=== PATIENT | male | born 1955 | race Caucasian/White ===

== ENCOUNTER → 2016-11-01 | Outpatient (REF) | payer MEDICARE, MEDICAID | LOC: M LABNEURO 17:15 | PROVIDERS: ATTEND Psychiatry & Neurology Neurology | DX: M25.512 Pain in left shoulder (principal) ==

== ENCOUNTER → 2016-11-13 | Outpatient (CLI) | payer MEDICARE, MEDICAID ==
--- NOTE | 2016-11-13 16:01 | REP ---
MRI LEFT SHOULDER WITHOUT CONTRAST: 11/13/2016. Clinical history: Shoulder pain. No known injury. Limited range of motion. The patient is medicated for tremors. Technique: Axial T2 Medic and fat suppressed T2 sequences with coronal T1 and fat suppressed T2 and a sagittal fat suppressed T2 sequence. All of the T2 fat suppressed sequences are limited to a degree by motion from his tremor. However, findings are reasonably made. Findings: No prior study. Coronal images show the AC joint with inferior spurring, but this does not impinge on the musculotendinous junction, however, a peripheral acromial spur does cause impingement of the musculotendinous junction of rotator cuff and there is a small amount of subacromial and subdeltoid bursa. There has been thinning of the supraspinatus tendon and a partial tear of the tendon of full-thickness in its central portion. However, no retraction of the tendon nor atrophy of the muscle belly of the supraspinatus is noted. There are some subchondral cysts in the greater tuberosity of the humeral head near the insertional footprint of that tendon. The subscapularis tendon shows some thickening anteriorly near its insertion suggesting some tendinopathy tendinosis. No tear or retraction of the tendon. No atrophy of the muscle. The infraspinatus and teres minor tendons and muscles are grossly intact. There is a small glenohumeral joint effusion and fluid in the subcoracoid bursa and along the subscapularis noted. No definite loose body. There may be some posterior labral degenerative changes or fraying, but no definite labral tear can be visualized on these images. No sign of a loose body. The bony coracoid was intact. The coracoclavicular and coracohumeral ligaments are intact. The spinal glenoid notch shows no fluid collection or mass. There are degenerative changes at the glenohumeral joint inferiorly. Biceps tendon is seated in the groove. Biceps labral complex grossly intact. Impression: 1. Osteoarthritic changes glenohumeral joint and AC joint but without impingement by the AC joint, however there is impingement of the supraspinatus tendon from a peripheral acromial spur and subchondral cystic changes noted. Partial tearing of that supraspinatus tendon over the greater tuberosity noted without full-thickness complete tear with retraction. Minimal atrophy of the muscle. 2. Subscapularis tendinopathy tendinosis without a full-thickness tear or with atrophy of the muscle. 3. Infraspinatus and teres minor tendons and muscles grossly intact and the biceps tendon grossly intact. Signed by Taz Starks MD 11/13/2016 05:10 P
== END ==
LOC: M RAD 09:46
PROVIDERS: ATTEND Psychiatry & Neurology Neurology
DX: S43.82XA Sprain of other specified parts of left shoulder girdle, initial encounter (principal); M19.012 Primary osteoarthritis, left shoulder; M75.82 Other shoulder lesions, left shoulder; M25.542 Pain in joints of left hand; X58.XXXA Exposure to other specified factors, initial encounter; Y92.89 Other specified places as the place of occurrence of the external cause; Y93.89 Activity, other specified; Y99.8 Other external cause status

== ENCOUNTER → 2017-12-02 | Outpatient (REF) | payer MEDICARE, MEDICAID ==
[2017-12-02 13:45] LABS: BASO # 0.1 10^3/uL (0.0-0.2); BASO % 0.9 % (0.0-1.0); EOS # 0.1 10^3/uL (0.0-0.50); EOS % 2.3 % (0.0-3.0); HEMATOCRIT 46.6 % (42.0-52.0); HEMOGLOBIN 15.3 g/dl (13.5-17.5); IMMATURE GRANULOCYTE % 0.2 % (0-3.0); LYMPH # 0.9 10^3/uL (1.5-4.5); LYMPH % 16.3 % (24.0-44.0); MEAN CORPUSCULAR HEMOGLOBIN 28.6 pg (27.0-33.0); MEAN CORPUSCULAR HGB CONC 32.8 g/dl (32.0-36.5); MEAN CORPUSCULAR VOLUME 87.1 fl (80.0-96.0); MONO # 0.5 10^3/uL (0.0-0.8); MONO % 9.1 % (0.0-5.0); NEUTROPHILS # 4.1 10^3/uL (1.8-7.7); NEUTROPHILS % 71.2 % (36.0-66.0); PLATELET COUNT, AUTOMATED 162 10^3/uL (150-450); RED BLOOD COUNT 5.35 10^6/uL (4.30-6.10); RED CELL DISTRIBUTION WIDTH 14.3 % (11.5-14.5); WHITE BLOOD COUNT 5.7 10^3/uL (4.0-10.0)
[2017-12-02 14:38] LABS: ALBUMIN 4.2 GM/DL (3.2-5.2); ALBUMIN/GLOBULIN RATIO 1.45 (1.00-1.93); ALKALINE PHOSPHATASE 127 U/L (45-117); ALT/SGPT 16 U/L (12-78); ANION GAP 6 MEQ/L (8-16); AST/SGOT 13 U/L (7-37); BILIRUBIN,TOTAL 0.5 MG/DL (0.2-1.0); BLOOD UREA NITROGEN 21 MG/DL (7-18); CALCIUM LEVEL 9.2 MG/DL (8.8-10.2); CARBON DIOXIDE LEVEL 29 MEQ/L (21-32); CHLORIDE LEVEL 109 MEQ/L (98-107); CREATININE FOR GFR 1.02 MG/DL (0.70-1.30); GLOMERULAR FILTRATION RATE > 60.0 (>49); GLUCOSE, FASTING 77 MG/DL (70-100); POTASSIUM SERUM 3.8 MEQ/L (3.5-5.1); SODIUM LEVEL 144 MEQ/L (136-145); TOTAL PROTEIN 7.1 GM/DL (6.4-8.2)
[2017-12-04 00:06] LABS: PHENOBARBITAL (PRIMIDONE) 15 ug/mL (15-40)
== END ==
LOC: M LABNEURO 11:06
DX: G25.0 Essential tremor (principal)
CPT/HCPCS: 80188

== ENCOUNTER → 2018-12-03 | Outpatient (REF) | payer MEDICARE, MEDICAID | LOC: M LAB REF 15:44 | PROVIDERS: ATTEND Orthopaedic Surgery | DX: M24.542 Contracture, left hand (principal) ==

== ENCOUNTER → 2019-05-13 | Outpatient (REF) | payer MEDICARE, MEDICAID | LOC: M LAB REF 19:13 | PROVIDERS: ATTEND Orthopaedic Surgery | DX: M72.0 Palmar fascial fibromatosis [Dupuytren] (principal) ==

== ENCOUNTER → 2020-01-21 | Outpatient (CLI) | payer MEDICARE, MEDICAID | LOC: M RAD 06:28 | PROVIDERS: ATTEND Podiatrist Foot & Ankle Surgery | DX: D21.21 Benign neoplasm of connective and other soft tissue of right lower limb, including hip (principal); Z53.9 Procedure and treatment not carried out, unspecified reason ==

== ENCOUNTER → 2020-01-27 | Outpatient (CLI) | payer MEDICARE, MEDICAID ==
--- NOTE | 2020-01-29 00:53 | REP ---
REASON: Bilateral foot cysts. Ultrasonographic evaluation of the plantar surface of the right foot shows a 3.2 x 0.9 x 1.5 cm sized solid area. Ultrasonographic evaluation of the lateral aspect of the left foot near the 5th digit shows a 1.4 x 0.6 x 0.9 cm sized solid area. IMPRESSION: Solid lesions of uncertain etiology. Gadolinium-enhanced MRI is recommended.
== END ==
LOC: M PLAIMG 10:02
PROVIDERS: ATTEND Podiatrist Foot & Ankle Surgery
DX: R22.43 Localized swelling, mass and lump, lower limb, bilateral (principal)

== ENCOUNTER → 2021-11-09 | Outpatient (REF) | payer MEDICARE, MEDICAID | LOC: M LAB REF 10:19 | PROVIDERS: ATTEND Orthopaedic Surgery | DX: M72.0 Palmar fascial fibromatosis [Dupuytren] (principal) ==

== ENCOUNTER → 2023-11-08 | Outpatient (CLI) | payer MEDICARE, MEDICAID | LOC: M SOG 14:30 | PROVIDERS: ATTEND Physician Assistant | DX: M19.041 Primary osteoarthritis, right hand (principal); M19.042 Primary osteoarthritis, left hand; M79.641 Pain in right hand; M79.642 Pain in left hand ==

== ENCOUNTER 2023-12-23 09:03 | Day surgery (SDC) | payer MEDICARE, MEDICAID ==
[~2023-12-23] VITALS: Ht 167.6 cm; Wt 71.7 kg
[~2023-12-23 09:03] MED LIST: ASPI81TA26 PO; CENT1TAB2 PO; HYDR-3490 PO; IBUP200C25 PO; METH50TA10 PO; OCUV1CAP4 PO; PRIM250T8 PO; PROP60TA14 PO; SIMV20TA22 PO
[2023-12-23] MEDS ORDERED: ACETAMINOPHEN 1000MG 100ML IV BAG As Ordered ONE (09:08)
[2023-12-23] MEDS ORDERED: ONDANSETRON 4MG 2ML VIAL As Ordered ONE (09:08)
[2023-12-23] MEDS ORDERED: propofoL 200 MG/20 ML VIAL As Ordered ONE (09:08)
[2023-12-23] MEDS ORDERED: fentaNYL 100 MCG/2 ML INJECTION As Ordered ONE (09:09)
[2023-12-23] MEDS ORDERED: LIDOCAINE 2% 100MG/5ML SDV (FOR ANES.) As Ordered ONE (09:10)
[2023-12-23] MEDS ORDERED: LR 1,000 ML IV SCH ×2 (09:25→13:45)
[2023-12-23] MEDS: ceFAZolin 2 GM/D5W 50 ML IV BAG As Ordered ONE (11:55)
[2023-12-23] MEDS: ceFAZolin SOD 2 GM in IV 1 EA IV ONE (12:30)
[2023-12-23] MEDS: BACITRACIN OINTMENT 30GM TUBE As Ordered ONE (13:40)
[2023-12-23] MEDS ORDERED: fentaNYL 100 MCG/2 ML INJECTION IV PRN (13:45)
[2023-12-23] MEDS: HYDROMORPHONE HCL 0.5 MG/ 0.5 ML SYRINGE IV PRN (14:00)
[2023-12-23] MEDS: oxyCODONE 5MG TAB PO PRN (14:10)
[2023-12-23] MEDS: ONDANSETRON 4MG 2ML VIAL IV PRN (14:15)
[2023-12-23 14:45] VITALS: BP 137/67; TEMP 97.2; O2SAT 98
== END 2023-12-23 14:52 | disposition home or self-care (01) ==
LOC: M SDC 09:03
PROVIDERS: ATTEND Orthopaedic Surgery Hand Surgery
DX: M72.0 Palmar fascial fibromatosis [Dupuytren] (principal); I10 Essential (primary) hypertension; Z79.899 Other long term (current) drug therapy; Z79.82 Long term (current) use of aspirin; Z90.49 Acquired absence of other specified parts of digestive tract
CPT/HCPCS: 26123; 76000; 88304; J0131; J0665; J0690; J1100; J1170; J2405; J3010

== ENCOUNTER → 2024-01-23 | Outpatient (CLI) | payer MEDICARE, MEDICAID | LOC: M SOG 13:55 | PROVIDERS: ATTEND Physician Assistant | DX: M79.644 Pain in right finger(s) (principal) ==